=== PATIENT | male | born 1995 | race Caucasian/White ===

== ENCOUNTER 2019-10-21 | Emergency (ER) | payer SELFPAY ==
[~2019-10-21] MED LIST: A/B OTI1 OT; AMOXICILLIN/CL875 MG OR; AMOXICILLIN875 MG PO; AUGMENTIN875TAB PO; CLARITIN10 M1 PO; FLONASE NASAL50 MCG; MEDROL4 M1 PO; NO; PROVENTIL HFA IN; ROCEPHIN 1 GM1 GM IM; TESSALON PER100 MG PO; TESSALON200 MG PO; ZITHROMAX250 MG PO
[2019-10-21 10:23] LABS: HEMATOCRIT 48.1 % (39.0-50.0); HEMOGLOBIN 16.2 g/dl (14.0-18.0); IMMATURE GRANULOCYTES 0.4 % (0.0-5.0); MEAN CELL VOLUME 85.1 fL CALC (80.0-100.0); MEAN CORPUSCULAR HGB 28.7 pG CALC (26.0-32.0); MEAN CORPUSCULAR HGB CONC 33.7 g/L CALC (32.0-36.0); NEUT# 13.45 thou/uL (1.82-7.42); RED BLOOD COUNT 5.65 mill/uL (4.70-6.10); RED CELL DISTRI WIDTH 12.7 % (11.5-15.5)
[2019-10-21 10:43] LABS: ANION GAP 16 (6-22 (CALC)); BUN 10 mg/dL (9-20); BUN/CREATININE RATIO 13 (12-20 (CALC)); CARBON DIOXIDE 26 mmol/l (22-30); CHLORIDE 102 mmol/l (95-108); CREATININE 0.8 mg/dL (0.7-1.3); GFR > 60 ML/MIN (>=60 (CALC)); GFR FOR AFR.AMER. > 60 ML/MIN (>=60 (CALC)); POTASSIUM 4.1 mmol/l (3.5-5.1); SODIUM 140 mmol/l (137-146)
[2019-10-21] MEDS ORDERED: PREDNISONE50 MG PO (11:11)
[2019-10-21] MEDS ORDERED: PROAIR HFA108 MCG/AC PO (11:11)
[2019-10-21] MEDS ORDERED: ALL DAY10 MG PO (11:23)
[2019-10-21] MEDS ORDERED: DOXYCYCL HYC100 M4 PO (11:23)
== END 2019-10-21 11:54 | disposition home or self-care (01) | DRG 203 ==
PROVIDERS: Family Medicine
DX: J45.901 Unspecified asthma with (acute) exacerbation (principal)